=== PATIENT | male | born 1945 | race Hispanic/Latino ===

== ENCOUNTER 2023-01-24 12:56 | Outpatient (CLI) | payer OTHER | END 2023-01-24 12:57 | disposition home or self-care (01) | LOC: MADRAD 12:56 | PROVIDERS: ATTEND Family Medicine | DX: M54.9 Dorsalgia, unspecified (principal); R06.00 Dyspnea, unspecified; M47.816 Spondylosis without myelopathy or radiculopathy, lumbar region; M47.814 Spondylosis without myelopathy or radiculopathy, thoracic region | CPT/HCPCS: 71046; 72070; 72100 ==